=== PATIENT | female | born 1950 | race Caucasian/White ===

== ENCOUNTER → 2016-08-18 | Outpatient (CLI) | payer OTHER ==
[~2016-08-18] MED LIST: ACETAMINOPHEN PO; ACETAMINOPHEN500 M4 PO; ALPRAZOLAM PO; ALPRAZOLAM XR0.5 MG PO; AMOXICILLIN500 M1 PO; AMOXIL500 M1 PO; ASPIRIN PO; ASPIRIN81 M1 PO; BACLOFEN10 MG PO; BUSPAR PO; CENTRUM PO; CIPRO PO; CLARITIN10 M2 PO; DIAZEPAM PO; DITROPAN PO; DITROPAN XL5 M2 PO; DITROPAN5 MG PO; DOLOBID PO; FLEXERIL10 MG PO; FOSAMAX PO; FOSAMAX70 MG PO; IBUPROFEN PO; ILOTYCIN1 GM OD; INDERAL20 MG PO; KLONOPIN0.5 MG PO; KLOR-CON PO; LASIX PO; LASIX20 MG PO; LEVOTHYROXINE50 MCG PO; LEVOXYL50 MCG PO; LOPRESSOR PO; LORTAB 10-3251 EACH PO; LORTAB 10-5001 EACH PO; MEDROL4 MG/DOSE- PO; MOTRIN20 MG/ML PO; MUCINEX COLD-F177 ML PO; MUCINEX DM TABL1 BOX PO; MUCINEX DM1 TAB.SR . PO; MULTI-VIT/MIN P1 TAB PO; MULTIPLE VITAMI1 T11 PO; MULTIVITAMIN1 UDCAP PO; NEURONTIN PO; NEURONTIN300 MG PO; NEURONTIN600 MG PO; NO MEDICATIONS; ORUDIS75 M1 PO; PREMARIN VAGINAL; PRILOSEC PO; PROPRANOLOL PO; SINGULAIR PO; TOPROL XL PO; TYLENOL PO; TYLENOL325 M1 PO; VICODIN 5/500 T1 TAB PO; VOLTAREN75 MG PO; XANAX XR0.5 MG PO; XANAX XR1 MG PO; ZOLOFT PO; ZOLOFT100 MG PO; [UNRECOGNIZED DRUG - OTHER] PO
--- NOTE | ~2016-08-18 | CR63 ---
[facility]. [facility] A Service of [facility] & [facility] RADIOLOGY TEXT RESULTS PATIENT: SHASHI PUCKETT LOCATION: [facility] : 50 UNIT #: [id number] AGE: [address]: Mesfin Ochoa MD SEX: F ORDER DR: [id number] [address] [address] [id number] O MR#: [id number] Acc #: [id number] NAME: SHASHI PUCKETT : 1950 SEX: F STUDY DATE/TIME: 08/18/2016 14:31 UNIT: [facility] ROOM: STUDY DESCRIPTION: CR Chest 2 View Attending Physician: Mesfin Ochoa M.D. Referring Physician: Mesfin Ochoa M.D. Ordering Physician: Mesfin Ochoa M.D. Primary Care Physician: Xochitl Bruner A.P.R.N. MEDICAL IMAGING REPORT This report is preliminary unless electronic signature is present. EXAM Chest 08/18/2016 [facility] HISTORY 66-year-old woman, pre-employment. History of cough and congestion with known allergies. COMPARISON Chest 10/12/2015 EXAM Two-view chest demonstrates normal cardiac size and configuration. Hilar structures and mediastinal contours are preserved. Bilateral lungs are expanded and clear. IMPRESSION Negative chest. No acute chest finding. Dictated by... Rene Mckeon M.D. THIS IS AN ELECTRONICALLY VERIFIED REPORT Rene Mckeon M.D. at 08/19/2016 9:39 AM ALESSANDROB/joi TD: 08/18/2016 18:41 JOB #: [id number] MEDICAL IMAGING REPORT Page 1 of 1
== END | disposition home or self-care (01) ==
LOC: SRAD 14:22
DX: Z02.1 Encounter for pre-employment examination (principal)
CPT/HCPCS: 71020